=== PATIENT | female | born 1965 | race Caucasian/White ===

== ENCOUNTER 2018-12-09 22:14 | Emergency (ER) | payer MEDICAID ==
[~2018-12-09] VITALS: Ht 160 cm; Wt 85.4 kg
[2018-12-09 22:39] VITALS: Ht 160 cm; Wt 85.4 kg
[2018-12-10 00:15] VITALS: BP 140/96
== END 2018-12-10 00:15 | disposition home or self-care (01) ==
LOC: ED 22:14
DX: J06.9 Acute upper respiratory infection, unspecified (principal)